=== PATIENT | male | born 1940 | race Caucasian/White ===

== ENCOUNTER 2021-09-14 16:38 | Emergency (ER) | payer MEDICARE, OTHER, SELFPAY ==
--- NOTE | ~2021-09-14 | CT_ITS ---
EXAMINATION: CT HEAD W/O IV CONTRAST CT CERVICAL SPINE W/O IV CONTRAST CLINICAL INFORMATION: History of fall and head strike. COMPARISON: 03/18/2019 TECHNIQUE: Head - Contiguous axial imaging of the head was performed from the skull base to the vertex without the administration of intravenous contrast, and axial images are reconstructed at 2 mm and 5 mm slice thickness. Cervical spine - A volumetric, helical CT acquisition of the cervical spine was obtained without contrast; in addition to the standard set of axial images, multiplanar reformatted images were provided in the coronal and sagittal imaging planes. This CT examination was performed using dose optimization techniques as appropriate, variously including the following: *Automated exposure control *Adjustment of mA and/or kV according to patient size (this includes techniques or standardized protocols for targeted exams where dose is matched to indication/reason for exam; i.e. extremities or head) *Use of iterative reconstruction technique DLP: 808.43 mGy-cm for the head 601.72 mGy-cm for the cervical spine FINDINGS: HEAD: No acute findings. No evidence of intracranial hemorrhage, major vascular territory infarction, focal mass effect or midline shift. Fountain to white matter differentiation is preserved. No extra-axial fluid collections. Chronic, mild parenchymal volume loss with commensurate prominence of ventricles and sulci. No hydrocephalus. The calvarium is intact and the visualized paranasal sinuses, mastoid air cells and middle ear cavities are clear. The temporomandibular joints are unremarkable. There has been right ocular lens extraction. Otherwise, the orbits are unremarkable. CERVICAL SPINE: The craniocervical junction is normal. The occipital condyles, dens and atlantodental articulation are intact. There is chronic degenerative osseous spurring at the atlantodental articulation. The evaluation of the cervical vertebra and alignment is limited by significant motion degradation of images. There are no convincing fractures in the anterior or posterior elements. No prevertebral soft tissue swelling. A repeat CT examination of the cervical spine may be performed at no additional charge today if the patient is able to cooperate and remain still on the examination table. There is chronic ankylosis of C3-C4 facet joints. Multilevel facet arthropathy and discovertebral degenerative changes of the cervical spine. The degenerative arthropathy has a stable appearance compared to 03/18/2019. The visualized lung apices are normal; no pneumothorax. Thyroid gland is grossly unremarkable. CT/CT cervical spine wo con IMPRESSION: * No acute intracranial pathology. * The evaluation of the cervical spine is significantly limited by patient motion. There are no convincing fractures in the degenerated spine. However, consider whether the patient will be able to undergo repeat CT evaluation today, if able to cooperate and remain still on the examination table.
--- NOTE | ~2021-09-14 | XR_ITS ---
EXAMINATION: XR CHEST CLINICAL INFORMATION: Fall. Anterior chest wall discomfort. COMPARISON: Chest radiograph dated 09/19/2013. TECHNIQUE: Frontal view of the chest was obtained. FINDINGS: The lungs are clear. The cardiomediastinal silhouette is normal in size. There is no pleural effusion or pneumothorax. No acute osseous abnormality. XR/XR chest 1V IMPRESSION: No acute cardiopulmonary findings.
--- NOTE | ~2021-09-14 | CT_ITS ---
EXAMINATION: CT CHEST, ABDOMEN AND PELVIS WITH CONTRAST. CLINICAL INFORMATION: Alcohol intoxication, chest wall pain status post fall . COMPARISON: 05/07/2018. TECHNIQUE: Multidetector volumetric imaging was performed from the thoracic inlet through the pubic symphysis following administration of 85 mL Omnipaque 300 intravenous contrast. Sagittal and coronal reformatted images were obtained on the technologist's workstation. This CT examination was performed using dose optimization techniques as appropriate, variously including the following: *Automated exposure control *Adjustment of mA and/or kV according to patient size (this includes techniques or standardized protocols for targeted exams where dose is matched to indication/reason for exam; i.e. extremities or head) *Use of iterative reconstruction technique DLP: 1544 mGy-cm FINDINGS: CHEST: Lung: The lungs are clear without focal opacity or nodule. Mediastinum: Small hiatal hernia. Coronary artery calcification noted. No hilar or mediastinal lymphadenopathy. Pericardium/Pleura: No significant effusion. No pleural mass or thickening. Chest Wall/Axilla: Unremarkable. ABDOMEN/PELVIS: Peritoneal Space:No significant free air or free fluid identified. Liver, Gallbladder, Biliary Tree: The liver is normal in size, shape, and attenuation. No focal hepatic lesion or biliary ductal dilatation is present. The gallbladder is unremarkable with no evidence of radiopaque gallstones, gallbladder wall thickening, or obvious pericholecystic inflammatory changes. Pancreas: Atrophic Spleen: Unremarkable. Adrenal Glands: Unremarkable. Kidneys and Ureters: Bilateral parapelvic cysts and a tiny cortical cysts but otherwise the kidneys are normal in size, shape, and attenuation. No hydronephrosis or hydroureter. Tiny nonobstructing calculi in the lower pole collecting system of the right kidney incidentally noted. No ureteric calculi. No perinephric stranding. Bladder: Tiny bladder diverticula in the region of the bladder dome Gastrointestinal Tract: There is scattered colonic diverticulosis but no colonic wall thickening or pericolonic inflammatory change to suggest diverticulitis. Patient appears to be status post right hemicolectomy with ileocolic anastomosis in the right upper quadrant. No obstructive changes to the small bowel. Small hiatal hernia noted Abdominal Wall: No significant hernia is appreciated. Lymphovascular Structures: Vascular calcification within the aorta iliac system. No bulky retroperitoneal or mesenteric adenopathy. Pelvic Viscera: Not well assessed due to metallic artifact from the bilateral hip prostheses Osseus Structures: Multilevel degenerative changes in the spine but I do not appreciate any acute fracture or spondylolisthesis. Bilateral hip prostheses noted. CT/CT abdomen pelvis w con IMPRESSION: Chronic appearing and postoperative changes noted. I do not appreciate any acute superimposed process.
--- NOTE | 2021-09-14 16:44 | ECG_ITS ---
Test Reason : FALL Blood Pressure : / mmHG Vent. Rate : 073 BPM Atrial Rate : 073 BPM P-R Int : 238 ms QRS Dur : 076 ms QT Int : 366 ms P-R-T Axes : 031 027 060 degrees QTc Int : 403 ms Sinus rhythm with sinus arrhythmia with 1st degree A-V block Otherwise normal ECG When compared with ECG of 07-MAY-2018 19:52, No significant change was found Referred By: Stephanie Sherwood Electronically Signed By:Francesco Luna
--- NOTE | 2021-09-14 16:45 | ED_ITS ---
HPI - Fall General Chief Complaint: Fall <NICOLASA Dubois Last Filed: 09/14/21 21:12> Stated Complaint: fall, hit head <NICOLASA Dubois Last Filed: 09/14/21 21:12> Time Seen by Provider: 09/14/21 16:44 <NICOLASA Dubois Last Filed: 09/14/21 21:12> Source: patient <NICOLASA Dubois Last Filed: 09/14/21 21:12> Mode of arrival: ambulatory <NICOLASA Dubois Last Filed: 09/14/21 21:12> Limitations: no limitations <NICOLASA Dubois Last Filed: 09/14/21 21:12> History of Present Illness HPI Narrative: This is a 81-year-old male past medical history anxiety, hypertension presenting to the emergency department via ambulance for an unwitnessed fall. According to patient he tripped, fell, hit his head and lost consciousness. He tells me the fall was unwitnessed, he thinks he did not lose consciousness however unsure. He tells me he called 911. He tells me he is now having head/neck pain. He tells me that his headache is diffuse throughout his head. Tells me that prior to the fall he did not have any preceding symptoms such as chest pain, shortness of breath, palpitations, headache, dizziness. Patient is not on blood thinners. Patient denies drug use. However he tells me he was drinking vodka sodas prior to his fall. He also reports that he is bleeding from the back of the head he is not sure what he hit his head on. <NICOLASA Dubois Last Filed: 09/14/21 21:12> MD complaint: fall <NICOLASA Dubois Last Filed: 09/14/21 21:12> Onset (ago): minute(s) (20) <NICOLASA Dubois Last Filed: 09/14/21 21:12> Fall from: standing <NICOLASA Dubois Last Filed: 09/14/21 21:12> Fall witnessed: no <NICOLASA Dubois Last Filed: 09/14/21 21:12> Place fall occurred: home <NICOLASA Dubois Last Filed: 09/14/21 21:12> Loss of consciousness: unsure <NICOLASA Dubois Last Filed: 09/14/21 21:12> Prolonged down time: no <NICOLASA Dubois Last Filed: 09/14/21 21:12> Symptoms prior to fall: none <NICOLASA Dubois Last Filed: 09/14/21 21:12> Context: tripped/slipped <NICOLASA Dubois Last Filed: 09/14/21 21:12> Location of injury: head and neck <NICOLASA Dubois Last Filed: 09/14/21 21:12> Related Data Home Medications: Home Medications Medication Instructions Recorded Confirmed allopurinol 300 mg tablet 1 tab PO DAILY 09/14/21 09/14/21 budesonide-formoterol HFA 80 2 puff INHALATION BID 09/14/21 09/14/21 mcg-4.5 mcg/actuation aerosol inhaler (Symbicort) cyclosporine 0.05 % eye drops in a 1 drp OPHTHALMIC (EYE) BID 09/14/21 09/14/21 dropperette (Restasis) diazepam 5 mg tablet 1 tab PO DAILY PRN 09/14/21 09/14/21 diclofenac sodium 1 % topical gel 2 g TOPICAL QID 09/14/21 09/14/21 fluticasone propionate 50 1 spray INTRANASAL DAILY 09/14/21 09/14/21 mcg/actuation nasal spray,suspension furosemide 40 mg tablet 1 tab PO DAILY 09/14/21 09/14/21 lisinopril 20 mg tablet 1 tab PO DAILY 09/14/21 09/14/21 simvastatin 20 mg tablet 1 tab PO BEDTIME 09/14/21 09/14/21 tadalafil 5 mg tablet 1 tab PO DAILY 09/14/21 09/14/21 tamsulosin 0.4 mg capsule 2 cap PO DAILY@1800 09/14/21 09/14/21 tramadol 50 mg tablet 1 tab PO Q6H PRN 09/14/21 09/14/21 <NICOLASA Dubois - Last Filed: 09/14/21 21:12> Allergies/Adverse Reactions: Allergies Allergy/AdvReac Type Severity Reaction Status Date / Time ENVIROMENTAL Allergy Intermediate COUGH, Uncoded 09/14/21 16:52 RUNNY NOSE seasonal Allergy Unknown Unknown Uncoded 09/14/21 16:52 <NICOLASA Dubois - Last Filed: 09/14/21 21:12> Review of Systems 2 Review of Systems: Constitutional : No Weight loss, No Fever, No Chills, No Fatigue, No Malaise ENT/Mouth : No sore throat, No Rhinorrhea Eyes: No Eye Pain, No Swelling, No Redness Cardiovascular : No Chest Pain, No SOB, No Dyspnea on Exertion, No Orthopnea, No Edema, No Palpitations Respiratory : No Cough, No Sputum, No Wheezing Gastrointestinal : No Nausea, No Vomiting, No Diarrhea, No Constipation, No abdominal Pain, No Hematochezia, No Melena Genitourinary : No Dysuria, No Urinary Frequency, No Hematuria, Musculoskeletal : + joint pain, No Myalgias, No Joint Swelling Skin : No Skin Lesions, No rash Neuro : No Weakness, No Numbness, No Dizziness, + Headache Psych : No Anxiety/Panic, No Depression All other systems reviewed and are negative <NICOLASA Dubois Last Filed: 09/14/21 21:12> Yes all other systems are reviewed and are negative <NICOLASA Dubois - Last Filed: 09/14/21 21:12> PMFSH Past Medical History Attestation statement: The following information was validated with the patient. <NICOLASA Dubois - Last Filed: 09/14/21 21:12> Source: old records reviewed and nursing notes reviewed <NICOLASA Dubois - Last Filed: 09/14/21 21:12> Medical History: Medical History (Updated 09/15/21 @ 00:01 by Miriam De Leon) Anxiety HTN (hypertension) <NICOLASA Dubois Last Filed: 09/14/21 21:12> Social History Social History: Social History Advance Directives: No Advance Directives Information Provided: No <NICOLASA Dubois - Last Filed: 09/14/21 21:12> Physical Exam Vital Signs: Vital Signs: Last Vital Signs Temp 98 F 09/14/21 16:47 Pulse 90 09/14/21 16:47 Resp 22 H 09/14/21 16:47 BP 147/74 H 09/14/21 16:47 Pulse Ox 99 09/14/21 16:47 BMI result Body Mass Index 38.5 Vital signs stable <NICOLASA Dubois Last Filed: 09/14/21 21:12> Appearance: Awake, alert responding to verbal stimuli however patient is confused and not answering all questions appropriately. He is able to follow simple commands No acute distress.? Patient smells like alcohol. Head: Normocephalic, atraumatic, no step-offs or deformities Eyes: Pupils equal, round and reactive to light.? ENT: Pharynx normal.? Neck: Normal inspection.? Neck supple.? CVS: Normal heart rate and rhythm.? Pulses normal.? Respiratory: No respiratory distress.? Breath sounds normal.? Abdomen: Soft and nontender.? Skin: Skin warm and dry.? Normal skin color.? Normal skin turgor.? Extremities: No lower extremity edema.? No calf ttp. 5/5 strength to bilateral upper and lower extremities Back: No midline tenderness, no C-spine tenderness, full range of motion, no CVA tenderness bilaterally Neuro: Awake, alert, responding to verbal stimuli, appears slightly confused at times not making sense, not answering all questions appropriately. He is however able to follow simple commands. No motor deficit.? No sensory deficit. <NICOLASA Dubois Last Filed: 09/14/21 21:12> Course Reevaluation(s) Reevaluation #1: Chest x-ray negative. CT of the head with no acute intracranial pathology. CT of the cervical spine limited due to motion however no convincing fractures. No acute findings within the abdomen. CT of the chest with no acute findings or focal past today. No evident rib fractures. At this time patient will be cleared from C-collar. at the bedside. <NICOLASA Dubois Last Filed: 09/14/21 21:12> Time: 20:44 <NICOLASA Dubois Last Filed: 09/14/21 21:12> Reevaluation #2: CBC within normal limits. Chemistry with no acute electrolyte abnormalities requiring intervention. Troponin negative, EKG nonischemic unlikely ACS. CK normal unlikely rhabdo. Ethanol 186. COVID negative. Patient has not urinated for us unable to obtain a UA however very low suspicion for UTI. Placed 2 yocasta to laceration on head. Advised to return in 10 days for rem oval. Upon re-evaluation of patient at the bedside, patient tells me he feels much better, he is alert and oriented x4 nonfocal neuro exam. Lungs clear regular rate and rhythm. Able to answer questions much more clearly. Does not appear to be confused. Following commands. Patient's initial presentation likely altered secondary to alcohol intoxication. Patient is ambulating with a steady gait and requesting to go home. At this time patient will be discharged home with strict return precautions. Advised him to return with new or worsening symptoms. Comfortable discharge home. <NICOLASA Dubois Last Filed: 09/14/21 21:12> Time: 20:47 <NICOLASA Dubois - Last Filed: 09/14/21 21:12> MDM - Fall MDM Narrative Medical decision making narrative: 164 81-year-old male presents status post trip and fall with a laceration to the back of his head, possible loss of consciousness unsure, patient admits to alcohol use earlier today. Fall unwitnessed. Appears well. There is a small laceration on the except all aspect of head. Bleeding controlled. Patient appears confused or intoxicated. Lungs clear. Regular rate and rhythm. No evident trauma to chest or abdomen. Plan at this time labs, imaging, UA, urine toxicology, ethanol. <NICOLASA Dubois Last Filed: 09/14/21 21:12> Medical Records Attestation: I reviewed the patient's medical records. <NICOLASA Dubois Last Filed: 09/14/21 21:12> Lab Data Attestation: I reviewed the patient's lab results. <NICOLASA Dubois Last Filed: 09/14/21 21:12> Result diagrams: : 09/14/21 17:03 09/14/21 17:03 <NICOLASA Dubois Last Filed: 09/14/21 21:12> Labs: Lab Results 09/14/21 09/14/21 09/14/21 Range/Units 17:03 17:03 17:03 WBC 6.8 (4.8-10.8) X10*3/uL RBC 4.50 L (4.60-5.80) X10*6/uL Hgb 14.9 (14.0-18.0) g/dl Hct 42.8 (42.0-52.0) % MCV 95.1 (80.0-98.0) fL MCH 33.1 H (27.0-33.0) pg MCHC 34.8 (31.0-36.0) g/dl RDW 12.7 (11.0-16.0) % Plt Count 151 L (160-400) X10*3/uL MPV 9.1 L (9.4-12.4) fL Immature Gran % (Auto) 0.4 (0.0-0.4) % Neut % (Auto) 48.1 (45-73) % Lymph % (Auto) 41.5 H (20-40) % [place] % (Auto) 7.7 (2-11) % Eos % (Auto) 1.9 (0-4) % Baso % (Auto) 0.4 (0-2) % Lymph # (Auto) 2.8 (1.2-4.9) X10*3/uL [place] # (Auto) 0.5 (0.1-1.2) X10*3/uL Eos # (Auto) 0.1 (0.0-0.4) X10*3/uL Baso # (Auto) 0.0 (0.0-0.2) X10*3/uL Abs Immat Gran (auto) 0.03 (0.00-0.03) X10*3/uL Absolute Neuts (auto) 3.3 (2.0-8.3) x10*3/uL Absolute Nucleated RBC 0.000 (0.0-0.012) X10*3/uL Nucleated RBC % (auto) 0.0 (0.0-0.2) /100WBC Sodium 137 (135-145) mmol/L Potassium 4.1 (3.3-5.1) mmol/L Chloride 106 (96-108) mmol/L Carbon Dioxide 16 L (22-29) mmol/L Anion Gap 19 (12-20) BUN 27 H (9-16) mg/dL Creatinine 1.17 (0.5-1.4) mg/dL Estim Creat Clear Calc 63.0 Estimated GFR > 60 Random Glucose 108 (60-115) mg/dL Calcium 9.5 (8.4-10.2) mg/dL Magnesium 2.1 (1.6-2.6) mg/dL Total Bilirubin 0.6 (0.0-1.0) mg/dL AST 18 (5-37) U/L ALT 12 (0-40) U/L Alkaline Phosphatase 62 (39-117) U/L Total Creatine Kinase 132 (38-174) U/L Troponin I High Sens < 3.5 (<3.5-35.0) ng/L Total Protein 6.4 L (6.5-8.0) g/dL Albumin 4.1 (3.5-5.0) g/dL Ethyl Alcohol mg/dL COVID-19 (LIANET) (Negative) COVID-19 Clin Com 09/14/21 09/14/21 Range/Units 17:03 17:27 WBC (4.8-10.8) X10*3/uL RBC (4.60-5.80) X10*6/uL Hgb (14.0-18.0) g/dl Hct (42.0-52.0) % MCV (80.0-98.0) fL MCH (27.0-33.0) pg MCHC (31.0-36.0) g/dl RDW (11.0-16.0) % Plt Count (160-400) X10*3/uL MPV (9.4-12.4) fL Immature Gran % (Auto) (0.0-0.4) % Neut % (Auto) (45-73) % Lymph % (Auto) (20-40) % [place] % (Auto) (2-11) % Eos % (Auto) (0-4) % Baso % (Auto) (0-2) % Lymph # (Auto) (1.2-4.9) X10*3/uL [place] # (Auto) (0.1-1.2) X10*3/uL Eos # (Auto) (0.0-0.4) X10*3/uL Baso # (Auto) (0.0-0.2) X10*3/uL Abs Immat Gran (auto) (0.00-0.03) X10*3/uL Absolute Neuts (auto) (2.0-8.3) x10*3/uL Absolute Nucleated RBC (0.0-0.012) X10*3/uL Nucleated RBC % (auto) (0.0-0.2) /100WBC Sodium (135-145) mmol/L Potassium (3.3-5.1) mmol/L Chloride (96-108) mmol/L Carbon Dioxide (22-29) mmol/L Anion Gap (12-20) BUN (9-16) mg/dL Creatinine (0.5-1.4) mg/dL Estim Creat Clear Calc Estimated GFR Random Glucose (60-115) mg/dL Calcium (8.4-10.2) mg/dL Magnesium (1.6-2.6) mg/dL Total Bilirubin (0.0-1.0) mg/dL AST (5-37) U/L ALT (0-40) U/L Alkaline Phosphatase (39-117) U/L Total Creatine Kinase (38-174) U/L Troponin I High Sens (<3.5-35.0) ng/L Total Protein (6.5-8.0) g/dL Albumin (3.5-5.0) g/dL Ethyl Alcohol 186 mg/dL COVID-19 (LIANET) Negative (Negative) COVID-19 Clin Com See Note <NICOLASA Dubois - Last Filed: 09/14/21 21:12> ECG Data Attestation: I personally reviewed and interpreted this ECG as follows: <NICOLASA Dubois - Last Filed: 09/14/21 21:12> ECG interpretation date: 09/14/21 <NICOLASA Dubois - Last Filed: 09/14/21 21:12> ECG interpretation time: 20:47 <NICOLASA Dubois - Last Filed: 09/14/21 21:12> Prior ECG tracings: available for review <NICOLASA Dubois Last Filed: 09/14/21 21:12> Interpretation: Ventricular rate of 73 SC prolonged , QRS normal, QT/QTC normal. EKG shows normal sinus rhythm with sinus arrhythmia and first-degree AV block. When compared to EKG from April 2018 no significant changes. No evidence signs of ischemia. <NICOLASA Dubois Last Filed: 09/14/21 21:12> Critical Care Time Critical Care Time Critical Care Time: No <NICOLASA Dubois Last Filed: 09/14/21 21:12> Discharge Plan Discharge Clinical Impression: Concussion without loss of consciousness, Fall, Laceration of head <NICOLASA Dubois Last Filed: 09/14/21 21:12> Patient Disposition: Home, Self-Care <NICOLASA Dubois Last Filed: 09/14/21 21:12> Instructions: Concussion (ED), Fall Prevention for Older Adults (ED), Post Concussion Syndrome (ED), Fall Prevention (ED), Head Laceration (ED) <NICOLASA Dubois Last Filed: 09/14/21 21:12> Additional Instructions: Take your medications as prescribed. If you were prescribed antibiotics today, it is important that you take your medication to their entirety, do not skip any doses, do not finish them early. Follow-up with your primary care provider this week. Return to the emergency department with new or worsening symptoms. Such as fevers, chills, chest pain, shortness of breath, nausea, vomiting, dizziness, headache, vision changes, lethargy, vision changes, confusion, weakness,changes in speech In case of emergency call 911 Please get yocasta removed in 10 days <NICOLASA Dubois Last Filed: 09/14/21 21:12> Prescriptions: No Action furosemide 40 mg tablet 1 tab PO DAILY 0RF lisinopril 20 mg tablet 1 tab PO DAILY 0RF tramadol 50 mg tablet 1 tab PO Q6H PRN (Reason: Pain) 0RF tamsulosin 0.4 mg capsule 2 cap PO DAILY@1800 0RF simvastatin 20 mg tablet 1 tab PO BEDTIME 0RF allopurinol 300 mg tablet 1 tab PO DAILY 0RF fluticasone propionate 50 mcg/actuation spray,suspension 1 spray intranasal DAILY 0RF tadalafil 5 mg tablet 1 tab PO DAILY 0RF budesonide-formoterol [Symbicort] 80-4.5 mcg/actuation HFA aerosol inhaler 2 puff inhalation BID 0RF diclofenac sodium 1 % gel 2 g topical QID 0RF diazepam 5 mg tablet 1 tab PO DAILY PRN (Reason: anxiety) 0RF cyclosporine [Restasis] 0.05 % dropperette 1 drp ophthalmic (eye) BID 0RF <NICOLASA Dubois - Last Filed: 09/14/21 21:12> Referrals: Physician,Unknown J [Primary Care Provider] - 2 days <NICOLASA Dubois - Last Filed: 09/14/21 21:12> Interventions: ED Discharge Assessment Last Done: 09/14/21 22:32 <NICOLASA Dubois - Last Filed: 09/14/21 21:12> Discharge Date/Time: 09/14/21 22:32 <NICOLASA Dubois - Last Filed: 09/14/21 21:12>
[2021-09-14 16:47] VITALS: BP 147/74; PULSE 90; RESP 22; TEMP 36.6; O2SAT 99; BMI 38.5
[2021-09-14 17:10] LABS: MANUAL DIFF FLAG NO
[2021-09-14 17:13] LABS: Basophils Percent Auto 0.4 % (0-2); Eosinophils Absolute Auto 0.1 X10*3/uL (0.0-0.4); Eosinophils Percent Auto 1.9 % (0-4); Hematocrit 42.8 % (42.0-52.0); Hemoglobin 14.9 g/dl (14.0-18.0); Imm Gran Abs Auto 0.03 X10*3/uL (0.00-0.03); Imm Gran Pct Auto 0.4 % (0.0-0.4); Lymphocytes Absolute Auto 2.8 X10*3/uL (1.2-4.9); Lymphocytes Percent Auto 41.5 % (20-40); Mean Corpuscular HGB Conc 34.8 g/dl (31.0-36.0); Mean Corpuscular Hemoglobin 33.1 pg (27.0-33.0); Mean Corpuscular Volume 95.1 fL (80.0-98.0); Mean Platelet Volume 9.1 fL (9.4-12.4); Monocytes Absolute Auto 0.5 X10*3/uL (0.1-1.2); Monocytes Percent Auto 7.7 % (2-11); Neutrophils Absolute Auto 3.3 x10*3/uL (2.0-8.3); Neutrophils Percent Auto 48.1 % (45-73); Platelet Count 151 X10*3/uL (160-400); Red Cell Distribution Width 12.7 % (11.0-16.0); White Blood Count 6.8 X10*3/uL (4.8-10.8)
[2021-09-14 17:27] LABS: COVID-19 Test Negative (Negative); IDNOW Serial# 16C4AD1C
[2021-09-14 17:32] LABS: Alanine Aminotransferase 12 U/L (0-40); Albumin Level 4.1 g/dL (3.5-5.0); Alkaline Phosphatase 62 U/L (39-117); Anion Gap 19 (12-20); Aspartate Amino Transferase 18 U/L (5-37); Bilirubin Total 0.6 mg/dL (0.0-1.0); Blood Urea Nitrogen 27 mg/dL (9-16); Calcium 9.5 mg/dL (8.4-10.2); Carbon Dioxide 16 mmol/L (22-29); Chloride 106 mmol/L (96-108); Estimated Glomerular Filt Rate > 60; Glucose Random 108 mg/dL (60-115); Magnesium 2.1 mg/dL (1.6-2.6); Potassium 4.1 mmol/L (3.3-5.1); Sodium 137 mmol/L (135-145); Total Protein 6.4 g/dL (6.5-8.0)
[2021-09-14 17:36] LABS: Troponin-I High Sensitivity < 3.5 ng/L (<3.5-35.0)
[2021-09-14 17:42] LABS: Ethanol 186 mg/dL
--- NOTE | 2021-09-14 18:05 | PHA.MEDREC ---
Pharmacy Consult ? Medication Reconciliation Pharmacy has completed the medication reconciliation. Spoke with the patients who was able to go over the medications with me.
[2021-09-14] MEDS: iohexoL 350 MG/ML 100 ML INFUS..BTL IV (19:13)
[2021-09-14] MEDS: Diphth,Pertus(ACell),Tet Adult 0.5 ML SYRINGE IM (21:44)
== END 2021-09-14 22:32 | disposition home or self-care (01) ==
PROVIDERS: Physician Assistant; Emergency Provider Emergency Medicine
DX: S06.0X0A Concussion without loss of consciousness, initial encounter (principal); S01.01XA Laceration without foreign body of scalp, initial encounter; M54.2 Cervicalgia; I10 Essential (primary) hypertension; W01.0XXA Fall on same level from slipping, tripping and stumbling without subsequent striking against object, initial encounter; Y93.9 Activity, unspecified; Y92.9 Unspecified place or not applicable; Y99.9 Unspecified external cause status; Z20.822 Contact with and (suspected) exposure to COVID-19
CPT/HCPCS: 12001; 36415; 70450; 71045; 71260; 72125; 74177; 80053; 82077; 82550; 83735; 84484; 85025; 87635; 90471; 90715; 93005; 99283; 99284; Q9967